=== PATIENT | male | born 1965 | race Caucasian/White ===

== ENCOUNTER → 2020-12-28 | Outpatient (CLI) | payer OTHER ==
[~2020-12-28] MED LIST: IBUPROFEN PO; NORCO 7.5-3251 EACH PO; PERCOCET 10-321 EACH PO; PERCOCET 7.5-31 EACH PO; PERCOCET PO; ROBAXIN500 MG PO
[2020-12-29 10:08] LABS: RHEUMATOID ARTHRITIS FACTOR 60.6 IU/mL (0.0-13.9)
[2020-12-30 15:09] LABS: ANGIOTENSIN-CONVERTING ENZYME 21 U/L (14-82); LYME IGG/IGM AB <0.91 ISR (0.00-0.90)
[2020-12-30 16:11] LABS: TREPONEMA PALLIDUM ANTIBODIES Non Reactive (Non Reactive)
[2020-12-30 17:11] LABS: ATYPICAL PANCA <1:20 titer (Neg:<1:20); CYTOPLASMIC (C-ANCA) <1:20 titer (Neg:<1:20); PERINUCLEAR (P-ANCA) <1:20 titer (Neg:<1:20)
== END ==
LOC: LAB 08:16
PROVIDERS: Optometrist
DX: H15.101 Unspecified episcleritis, right eye (principal)
CPT/HCPCS: 36415; 82164; 84550; 85652; 86038; 86256; 86431; 86618; 86780

== ENCOUNTER → 2021-02-19 | Outpatient (CLI) | payer OTHER ==
[2021-02-19 16:42] LABS: HEMOGLOBIN 15.8 gm/dl (14.0-17.5); RED BLOOD COUNT 5.08 M/UL (4.20-5.50); WHITE BLOOD COUNT 6.6 K/UL (4.5-11.0)
[2021-02-19 17:05] LABS: BUN/CREATININE RATIO 17 (0-10)
[2021-02-21 11:13] LABS: HBSAG SCREEN Negative (Negative); HEP B CORE AB, TOT Negative (Negative)
[2021-02-21 12:13] LABS: RHEUMATOID ARTHRITIS FACTOR 18.5 IU/mL (0.0-13.9)
[2021-02-21 21:08] LABS: HEPATITIS C QUANTITATION HCV Not Detected IU/mL (.)
[2021-02-22 06:10] LABS: QUANTIFERON MITOGEN VALUE >10.00 IU/mL (.); QUANTIFERON NIL VALUE 0.02 IU/mL (.); QUANTIFERON-TB GOLD PLUS Negative (Negative)
[2021-02-25 01:11] LABS: CCP ANTIBODIES IGG/IGA 5 units (0-19)
== END ==
LOC: LAB 14:40
PROVIDERS: Nurse Practitioner Family
DX: Z11.59 Encounter for screening for other viral diseases (principal); R76.8 Other specified abnormal immunological findings in serum; H15.009 Unspecified scleritis, unspecified eye; D89.9 Disorder involving the immune mechanism, unspecified; Z79.899 Other long term (current) drug therapy
CPT/HCPCS: 36415; 80053; 82550; 85025; 85652; 86140; 86200; 86431; 86704; 87340; 87522

== ENCOUNTER 2021-11-17 17:11 | Emergency (ER) | payer SELFPAY | END 2021-11-17 18:04 | disposition left against medical advice (07) | LOC: ER1 17:11 | DX: Z53.21 Procedure and treatment not carried out due to patient leaving prior to being seen by health care provider (principal) ==